=== PATIENT | male | born 1995 | race Caucasian/White ===

== ENCOUNTER 2016-12-07 17:40 | Emergency (ER) | payer MEDICAID ==
--- NOTE | 2016-12-07 18:13 | ER Document Report ---
ED Medical Screen (RME) - General Stated Complaint: COUGH Mode of Arrival: Ambulatory Information source: Patient Notes: Patient complains of cough for the past 2 months. Patient denies any fever. hx:none I have greeted and performed a rapid initial assessment of this patient. A comprehensive ED assessment and evaluation of the patient, analysis of test results and completion of the medical decision making process will be conducted by additional ED providers. TRAVEL OUTSIDE OF THE [place] IN LAST 30 DAYS: No - Related Data Allergies/Adverse Reactions: No Known Allergies Allergy (Verified 11/18/14 13:38) Past Medical History Past Surgical History: Reports: Hx Orthopedic Surgery - R knee - Immunizations Immunizations up to date: Yes Hx Diphtheria, Pertussis, Tetanus Vaccination: Yes Physical Exam - Vital signs Vitals: Temp Pulse Resp BP Pulse Ox 98.5 F 105 H 16 105/63 97 12/07/16 17:51 12/07/16 17:51 12/07/16 17:51 12/07/16 17:51 12/07/16 17:51 - Respiratory Respiratory status: No respiratory distress Breath sounds: Nonproductive cough Course - Vital Signs Vital signs: Temp Pulse Resp BP Pulse Ox 98.5 F 105 H 16 105/63 97 12/07/16 17:51 12/07/16 17:51 12/07/16 17:51 12/07/16 17:51 12/07/16 17:51
--- NOTE | 2016-12-07 19:10 | ER Document Report ---
ED General - General Chief Complaint: Cough Stated Complaint: COUGH Time seen by provider: 19:05 Mode of Arrival: Ambulatory Notes: This is a 21-year-old male that presents today with a cough nonproductive for the past 4 months. He states that he was seen by [facility]le October 2016 and diagnosed with pneumonia. He was put on Levaquin however he did not complete treatment regimen. He stated that he had one dose left before quitting due to nausea. He was also seen 2 weeks ago by the same facility and was told that he had an abnormal opacity; however he does not recall which lung field. Patient denies nausea vomiting fever chills shortness of breath. He does admit to chest pain when coughing. TRAVEL OUTSIDE OF THE [place] IN LAST 30 DAYS: No - Related Data Allergies/Adverse Reactions: No Known Allergies Allergy (Verified 11/18/14 13:38) Past Medical History - General Information source: Patient - Social History Smoking Status: Never Smoker - He does chew tobacco. One can a day for the past 5 years. Chew tobacco use (# tins/day): No Frequency of alcohol use: None Drug Abuse: None Family History: Reviewed & Not Pertinent Patient has suicidal ideation: No Patient has homicidal ideation: No Renal/ Medical History: Denies: Hx Peritoneal Dialysis Past Surgical History: Reports: Hx Orthopedic Surgery - R knee - Immunizations Immunizations up to date: Yes Hx Diphtheria, Pertussis, Tetanus Vaccination: Yes Review of Systems - Review of Systems Constitutional: denies: Chills, Fever EENT: No symptoms reported Cardiovascular: No symptoms reported Respiratory: See HPI Gastrointestinal: No symptoms reported Genitourinary: No symptoms reported Male Genitourinary: No symptoms reported Musculoskeletal: No symptoms reported Skin: No symptoms reported Hematologic/Lymphatic: No symptoms reported Neurological/Psychological: No symptoms reported Physical Exam - Vital signs Vitals: Temp Pulse Resp BP Pulse Ox 98.5 F 105 H 16 105/63 97 12/07/16 17:51 12/07/16 17:51 12/07/16 17:51 12/07/16 17:51 12/07/16 17:51 - General General appearance: Appears well In distress: None - HEENT Head: Normocephalic, Atraumatic Eyes: Normal Conjunctiva: Normal - Respiratory Respiratory status: No respiratory distress Breath sounds: Normal. No: Rales, Rhonchi, Stridor, Wheezing - Cardiovascular Rhythm: Regular Heart sounds: Normal auscultation - Abdominal Inspection: Normal Bowel sounds: Normal Tenderness: Nontender - Extremities General upper extremity: Normal inspection General lower extremity: Normal inspection - Neurological Cognition: Normal. No: Confused - Psychological Associated symptoms: Normal affect, Normal mood - Skin Skin Temperature: Warm Skin Moisture: Dry Skin Color: Normal Course - Re-evaluation Re-evalutation: 12/07/16 19:09 Radiograph image results was shared with the patient. He was given multiple opportunities to ask questions. Patient stated that he would follow-up with primary care physician. - Vital Signs Vital signs: Temp Pulse Resp BP Pulse Ox 98.1 F 85 16 105/65 98 12/07/16 19:43 12/07/16 19:43 12/07/16 19:43 12/07/16 19:43 12/07/16 19:43 Discharge - Discharge Clinical Impression: Cough Condition: Stable Disposition: HOME, SELF-CARE Additional Instructions: Return to the emergency department if symptoms worsen such as loss of consciousness, inability to breathe, fever, nausea, vomiting, etc. follow-up with primary care physician as soon as possible. Prescriptions: Albuterol Sulfate [Proair HFA Inhalation Aerosol 8.5 gm MDI] 2 puff IH Q4H PRN # 1 mdi PRN Reason: Referrals: MARS WEAVER MD, MD [Primary Care Provider] - Follow up as needed
[2016-12-07 19:44] VITALS: BP 105/65
== END 2016-12-07 19:25 | disposition home or self-care (01) ==
LOC: ER 17:40
DX: R05 Cough (principal); R11.0 Nausea
CPT/HCPCS: 71020; 99283

== ENCOUNTER 2017-01-27 22:06 | Emergency (ER) | payer MEDICAID ==
[2017-01-27 22:20] VITALS: BP 119/70
== END 2017-01-27 22:55 | disposition left against medical advice (07) ==
LOC: ER 22:06
DX: Z53.21 Procedure and treatment not carried out due to patient leaving prior to being seen by health care provider (principal)

== ENCOUNTER 2017-04-19 20:12 | Emergency (ER) | payer MEDICAID ==
[2017-04-19] MEDS ORDERED: DIPH/PERTUSS(ACELL)/TETANUS VAC/PF 0.5 ML SYR (>=10YO) IM ONE (20:43)
--- NOTE | 2017-04-19 21:17 | RADIOLOGY REPORT (SQ) ---
EXAM DESCRIPTION: HAND RIGHT 3 VIEWS COMPLETED DATE/TIME: 04/19/2017 9:03 pm REASON FOR STUDY: metal injury to hand COMPARISON: None. EXAM PARAMETERS: NUMBER OF VIEWS: Three views. TECHNIQUE: AP, lateral and oblique radiographic images acquired of the right hand. LIMITATIONS: None. FINDINGS: MINERALIZATION: Normal. BONES: No acute fracture or dislocation. No worrisome bone lesions. JOINTS: No effusions. SOFT TISSUES: No soft tissue swelling. No foreign body. OTHER: No other significant finding. IMPRESSION: NEGATIVE STUDY OF THE RIGHT HAND. NO RADIOGRAPHIC EVIDENCE OF ACUTE INJURY. TECHNICAL DOCUMENTATION: JOB ID: [id number] [employer]- All Rights Reserved
--- NOTE | 2017-04-19 22:04 | ER Document Report ---
HPI - HPI Onset: This evening Onset/Duration: Sudden Pain Level: 1 Context: 21 year-old male hit the dorsal aspect of his right hand while working on a car this evening. Tetanus shot 2 years ago. Associated Symptoms: None Exacerbated by: Denies Relieved by: Denies Similar symptoms previously: No Recently seen / treated by doctor: No - ROS ROS below otherwise negative: Yes Systems Reviewed and Negative: Yes All other systems reviewed and negative Past Medical History - General Information source: Patient - Social History Smoking Status: Never Smoker Chew tobacco use (# tins/day): No Frequency of alcohol use: None Drug Abuse: None Family History: Reviewed & Not Pertinent - Medical History Medical History: Negative Renal/ Medical History: Denies: Hx Peritoneal Dialysis Surgical Hx: Negative Past Surgical History: Reports: Hx Orthopedic Surgery - R knee - Immunizations Immunizations up to date: Yes Hx Diphtheria, Pertussis, Tetanus Vaccination: No Vertical Provider Document - CONSTITUTIONAL Agree With Documented VS: Yes Exam Limitations: No Limitations General Appearance: No Apparent Distress - INFECTION CONTROL TRAVEL OUTSIDE OF THE [place] IN LAST 30 DAYS: No - HEENT HEENT: Atraumatic - NECK Neck: Supple - RESPIRATORY O2 Sat by Pulse Oximetry: 97 - MUSCULOSKELETAL/EXTREMETIES Musculoskeletal/Extremeties: MAEW, FROM - NEURO Level of Consciousness: Awake, Alert Motor/Sensory: No Motor Deficit, No Sensory Deficit - DERM Integumentary: Laceration - Flap cut over dorsal fourth . rt MCP joint. length of edge 1,5 cm Course - Vital Signs Vital signs: Temp Pulse Resp BP Pulse Ox 98.5 F 82 105/58 L 97 04/19/17 20:37 04/19/17 20:37 04/19/17 20:37 04/19/17 20:37 Procedures - Laceration/Wound Repair Right Hand Time completed: 23:03 Wound length (cm): 1.5 Wound's Depth, Shape: Flap Laceration pre-procedure: Sterile drapes applied, Other - ultradex scrub Anesthetic type: 1% Lidocaine Volume Anesthetic (mLs): 3 Wound explored: Clean Irrigated w/ Saline (mLs): 60 Wound Repaired With: Sutures Suture Size/Type: 4:0, Prolene Number of Sutures: 2 Post-procedure NV exam normal: Yes Complications: No Discharge - Discharge Clinical Impression: 4th dorsal rt MCP joint flap cut repair Condition: Good Disposition: HOME, SELF-CARE Instructions: Hand Laceration ([facility]), Laceration Care ([facility]) Additional Instructions: keep clean and dry bacitracin to er any concerns or signs of infection sutures out in 10 days Referrals: MARS WEAVER MD [Primary Care Provider] - Follow up as needed
[2017-04-19] MEDS ORDERED: LIDOCAINE 1% INJ-PF (10 MG/ML) 30 ML SDV INJ ONE (22:08)
[2017-04-19 23:18] VITALS: BP 115/68
== END 2017-04-19 23:18 | disposition home or self-care (01) ==
LOC: ER 20:12
PROC: 0HQFXZZ Repair Right Hand Skin, External Approach (ICD-10-PCS; principal; 2017-04-19)
DX: S61.411A Laceration without foreign body of right hand, initial encounter (principal); W22.09XA Striking against other stationary object, initial encounter; Z23 Encounter for immunization
CPT/HCPCS: 99283; 90471; 73130; 90715; 12001; J3490

== ENCOUNTER 2017-05-26 13:32 | Emergency (ER) | payer MEDICAID ==
[2017-05-26 13:38] VITALS: BP 111/64
[2017-05-26] MEDS ORDERED: ONDANSETRON 4 MG TAB.RAPDIS PO ONE (14:27)
--- NOTE | 2017-05-26 14:29 | ER Document Report ---
ED Medical Screen (RME) - General Chief Complaint: Abdominal Pain Stated Complaint: THROWING UP, SWEATING, DIARREHA Time Seen by Provider: 05/26/17 14:27 Notes: Patient has had vomiting and diarrhea since this morning. He says he is vomited 3 or 4 times. As he sat on the toilet for about an hour with the diarrhea. No blood seen in the diarrhea or vomitus. No fevers. Denies abdominal pain. TRAVEL OUTSIDE OF THE [place] IN LAST 30 DAYS: No - Related Data Allergies/Adverse Reactions: No Known Allergies Allergy (Verified 05/26/17 13:35) Past Medical History - Social History Chew tobacco use (# tins/day): No Frequency of alcohol use: None Drug Abuse: None Renal/ Medical History: Denies: Hx Peritoneal Dialysis Surgical Hx: Negative Past Surgical History: Reports: Hx Orthopedic Surgery - R knee - Immunizations Immunizations up to date: Yes Hx Diphtheria, Pertussis, Tetanus Vaccination: No Physical Exam - Vital signs Vitals: Temp Pulse Resp BP Pulse Ox 99.2 F 113 H 14 111/64 97 05/26/17 13:35 05/26/17 13:35 05/26/17 13:35 05/26/17 13:35 05/26/17 13:35 Course - Vital Signs Vital signs: Temp Pulse Resp BP Pulse Ox 99.2 F 113 H 14 111/64 97 05/26/17 13:35 05/26/17 13:35 05/26/17 13:35 05/26/17 13:35 05/26/17 13:35
[2017-05-26 15:16] LABS: APPEARANCE,URINE CLEAR; BILIRUBIN,URINE MODERATE (NEGATIVE); GLUCOSE, URINE NEGATIVE (NEGATIVE); KETONES,URINE 100 mg/dL (NEGATIVE); LEUKOCYTE ESTERASE,URINE NEGATIVE (NEGATIVE); NITRITE,URINE NEGATIVE (NEGATIVE); PROTEIN,URINE 30 mg/dL (NEGATIVE)
[2017-05-26 15:17] LABS: ABSOLUTE LYMPHOCYTES (AUTO) 0.5 10^3/uL (0.5-4.7); ABSOLUTE MONOCYTES (AUTO) 0.2 10^3/uL (0.1-1.4); BASOPHILS % (AUTO) 0.2 % (0-2); EOSINOPHILS % (AUTO) 0.4 % (0-6); HEMATOCRIT 47.8 % (37.9-51.0); HGB HCT DIFFERENCE 0.2; LYMPHOCYTES % (AUTO) 7.2 % (13-45); MEAN CORPUSCULAR HEMOGLOBIN 28.2 pg (27.0-33.4); MEAN CORPUSCULAR HGB CONC 33.4 g/dL (32.0-36.0); MEAN CORPUSCULAR VOLUME 84 fl (80-97); MONOCYTES % (AUTO) 3.6 % (3-13); RED BLOOD COUNT 5.67 10^6/uL (4.35-5.55); RED CELL DISTRIBUTION WIDTH 12.6 % (11.5-14.0); SEGMENTED NEUTROPHILS % (AUTO) 88.6 % (42-78); WHITE BLOOD COUNT 6.8 10^3/uL (4.0-10.5)
[2017-05-26 15:17] LABS: URINE SPECIFIC GRAVITY 1.032
[2017-05-26 15:35] LABS: ALANINE AMINOTRANSFERASE 26 U/L (21-72); ALBUMIN 4.7 g/dL (3.5-5.0); ALKALINE PHOSPHATASE 74 U/L (38-126); ANION GAP 14 (5-19); ASPARTATE AMINO TRANSFERASE 21 U/L (17-59); BILIRUBIN,DIRECT 0.4 mg/dL (0.0-0.4); BILIRUBIN,TOTAL 2.8 mg/dL (0.2-1.3); BLOOD UREA NITROGEN 26 mg/dL (7-20); CALCIUM 9.4 mg/dL (8.4-10.2); CARBON DIOXIDE 25 mmol/L (22-30); CHLORIDE 101 mmol/L (98-107); CREATININE RESULT 1.01 mg/dL (0.52-1.25); GLUCOSE 109 mg/dL (75-110); LIPASE 40.1 U/L (23-300); POTASSIUM 3.8 mmol/L (3.6-5.0); SODIUM 140.4 mmol/L (137-145); TOTAL PROTEIN 7.7 g/dL (6.3-8.2)
== END 2017-05-26 15:50 | disposition left against medical advice (07) ==
LOC: ER 13:32
DX: Z53.9 Procedure and treatment not carried out, unspecified reason (principal); R10.9 Unspecified abdominal pain; R11.10 Vomiting, unspecified
CPT/HCPCS: 99281; 36415; 83690; 85025; 80053; 81001; S0119

== ENCOUNTER 2017-05-26 22:39 | Emergency (ER) | payer MEDICAID ==
[2017-05-26 23:21] LABS: ABSOLUTE LYMPHOCYTES (AUTO) 0.9 10^3/uL (0.5-4.7); ABSOLUTE MONOCYTES (AUTO) 0.4 10^3/uL (0.1-1.4); ABSOLUTE NEUT (AUTO) 4.4 10^3/uL (1.7-8.2); BASOPHILS % (AUTO) 0.7 % (0-2); EOSINOPHILS % (AUTO) 0.7 % (0-6); HEMATOCRIT 44.6 % (37.9-51.0); HGB HCT DIFFERENCE 0.4; LYMPHOCYTES % (AUTO) 15.5 % (13-45); MEAN CORPUSCULAR HEMOGLOBIN 28.4 pg (27.0-33.4); MEAN CORPUSCULAR HGB CONC 33.6 g/dL (32.0-36.0); MEAN CORPUSCULAR VOLUME 84 fl (80-97); MONOCYTES % (AUTO) 7.4 % (3-13); RED BLOOD COUNT 5.29 10^6/uL (4.35-5.55); RED CELL DISTRIBUTION WIDTH 12.6 % (11.5-14.0); SEGMENTED NEUTROPHILS % (AUTO) 75.7 % (42-78); WHITE BLOOD COUNT 5.8 10^3/uL (4.0-10.5)
[2017-05-26 23:23] LABS: APPEARANCE,URINE CLEAR; BILIRUBIN,URINE NEGATIVE (NEGATIVE); GLUCOSE, URINE NEGATIVE (NEGATIVE); KETONES,URINE TRACE mg/dL (NEGATIVE); LEUKOCYTE ESTERASE,URINE NEGATIVE (NEGATIVE); NITRITE,URINE NEGATIVE (NEGATIVE); PROTEIN,URINE NEGATIVE (NEGATIVE); URINE SPECIFIC GRAVITY 1.018
[2017-05-26 23:37] LABS: ALANINE AMINOTRANSFERASE 32 U/L (21-72); ALBUMIN 4.5 g/dL (3.5-5.0); ALKALINE PHOSPHATASE 59 U/L (38-126); ANION GAP 13 (5-19); ASPARTATE AMINO TRANSFERASE 19 U/L (17-59); BILIRUBIN,DIRECT 0.3 mg/dL (0.0-0.4); BILIRUBIN,TOTAL 3.1 mg/dL (0.2-1.3); BLOOD UREA NITROGEN 22 mg/dL (7-20); CALCIUM 9.2 mg/dL (8.4-10.2); CARBON DIOXIDE 25 mmol/L (22-30); CHLORIDE 98 mmol/L (98-107); CREATININE RESULT 1.11 mg/dL (0.52-1.25); GLUCOSE 99 mg/dL (75-110); LIPASE 42.5 U/L (23-300); POTASSIUM 3.8 mmol/L (3.6-5.0); SODIUM 135.9 mmol/L (137-145); TOTAL PROTEIN 7.5 g/dL (6.3-8.2)
[2017-05-27] MEDS ORDERED: NORMAL SALINE 1000 ML 1,000 ML IV ONE (02:39)
--- NOTE | 2017-05-27 02:45 | ER Document Report ---
ED GI/ - General Chief Complaint: Vomiting Stated Complaint: VOMITING Time Seen by Provider: 05/27/17 01:38 Mode of Arrival: Ambulatory Information source: Patient Notes: -year-old male presents to ED for nausea vomiting diarrhea yesterday. Just not had any vomiting today. States he does have some leg pain and dizziness and loopy feeling today. He states that he vomited multiple times yesterday. TRAVEL OUTSIDE OF THE [place] IN LAST 30 DAYS: No - HPI Patient complains to provider of: Diarrhea, Vomiting, Other - Leg cramps dizziness and feeling "loopy" Onset: Yesterday Timing/Duration: Better Quality of pain: Cramping Severity at maximum: Moderate Severity in ED: Moderate Pain Level: 3 Location: Other - Leg cramps and dizzy Associated symptoms: Diarrhea, Dizzy, Nausea, Vomiting, Other - Cramps Exacerbated by: Movement, Walking Relieved by: Denies Similar symptoms previously: Yes Recently seen / treated by doctor: No - Related Data Allergies/Adverse Reactions: No Known Allergies Allergy (Verified 05/26/17 13:35) Past Medical History - General Information source: Patient - Social History Smoking Status: Never Smoker Cigarette use (# per day): No Chew tobacco use (# tins/day): Yes Smoking Education Provided: Yes - 1 minute Frequency of alcohol use: None Drug Abuse: None Occupation: [employer] Lives with: Family Family History: CAD, COPD, DM, Hyperlipidemia, Hypertension, Malignancy Patient has suicidal ideation: No Patient has homicidal ideation: No - Past Medical History Cardiac Medical History: Reports: None Pulmonary Medical History: Reports: None EENT Medical History: Reports: Eyes - Cataract removed at age 9 Neurological Medical History: Reports: None Endocrine Medical History: Reports: None Renal/ Medical History: Reports: None Malignancy Medical History: Reports None GI Medical History: Reports: None Musculoskeltal Medical History: Reports Hx Musculoskeletal Trauma Skin Medical History: Reports None Psychiatric Medical History: Reports: None Traumatic Medical History: Reports: None Infectious Medical History: Reports: None Past Surgical History: Reports: Hx Orthopedic Surgery - R knee, Other - Cataract removed at age 9 - Immunizations Immunizations up to date: Yes Hx Diphtheria, Pertussis, Tetanus Vaccination: No Review of Systems - Review of Systems Constitutional: No symptoms reported EENT: No symptoms reported Cardiovascular: Dizziness Respiratory: No symptoms reported Gastrointestinal: No symptoms reported Genitourinary: No symptoms reported Male Genitourinary: No symptoms reported Musculoskeletal: Other - Leg cramps Skin: No symptoms reported Hematologic/Lymphatic: No symptoms reported Neurological/Psychological: No symptoms reported -: Yes All other systems reviewed and negative Physical Exam - Vital signs Vitals: Temp Pulse Resp BP Pulse Ox 99.8 F 113 H 20 113/70 96 05/26/17 22:40 05/26/17 22:40 05/26/17 22:40 05/26/17 22:40 05/26/17 22:40 Interpretation: Hypotensive - Pressure 87/62, Other - Pulse 76, 97% O2 sat. No : Febrile - 29.4 - General General appearance: Appears well, Alert - HEENT Head: Normocephalic, Atraumatic Eyes: Normal Pupils: PERRL - Respiratory Respiratory status: No respiratory distress Chest status: Nontender Breath sounds: Normal Chest palpation: Normal - Cardiovascular Rhythm: Regular Heart sounds: Normal auscultation Murmur: No - Abdominal Inspection: Normal Distension: No distension Bowel sounds: Normal Tenderness: Nontender Organomegaly: No organomegaly - Back Back: Normal, Nontender - Extremities General upper extremity: Normal inspection, Nontender, Normal color, Normal ROM , Normal temperature General lower extremity: Normal inspection, Nontender, Normal color, Normal ROM , Normal temperature, Normal weight bearing. No: Tj's sign - Neurological Neuro grossly intact: Yes Cognition: Normal Orientation: AAOx4 David Coma Scale Eye Opening: Spontaneous David Coma Scale Verbal: Oriented [place] Coma Scale Motor: Obeys Commands David Coma Scale Total: 15 Speech: Normal Motor strength normal: LUE, RUE, LLE, RLE Sensory: Normal - Psychological Associated symptoms: Normal affect, Normal mood - Skin Skin Temperature: Warm Skin Moisture: Dry Skin Color: Normal Course - Re-evaluation Re-evalutation: 05/27/17 07:58 Patient labs with the patient blood pressure was low gave him a liter of fluids he stated that he felt much better food and was ready to go home. Patient was discharged home. - Vital Signs Vital signs: Temp Pulse Resp BP Pulse Ox 99.8 F 88 18 105/62 96 05/26/17 22:40 05/27/17 04:24 05/27/17 04:24 05/27/17 04:24 05/27/17 04:24 - Laboratory Result Diagrams: 05/26/17 23:00 05/26/17 23:00 Laboratory results interpreted by me: 05/26/17 05/26/17 05/26/17 23:00 23:00 23:00 Plt Count 115 L Sodium 135.9 L BUN 22 H Total Bilirubin 3.1 H Urine Ketones TRACE H Urine Blood SMALL H Urine Urobilinogen 4.0 H Discharge - Discharge Clinical Impression: Nausea, vomiting, and diarrhea, Dizziness Condition: Stable Disposition: HOME, SELF-CARE Additional Instructions: VOMITING: Vomiting (or nausea without vomiting) can be caused by many other different problems. It can mean that something's wrong with the stomach, such as ulcers or inflammation or the intestinal tract, such as appendicitis. But it can also be a symptom of a problem that has nothing to do with the stomach or intestines. Vomiting is common with severe headaches, earaches, tonsillitis, and kidney infections, etc. We see it with pneumonia or heart attacks. Drugs can cause nausea and vomiting. Many abdominal problems cause vomiting; for example, gallstones, kidney stones, pancreatitis, and intestinal obstruction ( blocked bowels). In most cases, curing the vomiting depends on fixing the problem that caused it. For temporary relief, we may use an anti-nausea medicine. For home use, we can prescribe suppositories, chewable pills, pills that dissolve in the mouth, or liquid anti-nausea drugs. If the vomiting seems to be caused by a problem in the stomach, acid-suppressing drugs may be prescribed as well. It's important to avoid dehydration. Sip small amounts of clear liquids ( soft drinks, tea, broth, etc) . Try to take fluids frequently even if you are vomiting to prevent dehydration. Take increasing amounts of fluid and when liquids are being consumed successfully, advance to small amounts of bland food (toast, soups, mashed potatoes, etc.) until you are able to resume a regular diet. Avoid aspirin, tobacco, and alcohol. If the vomiting worsens, if the problem that's making you vomit worsens, or if there's evidence of bleeding in the stomach (such as black, tarry stool, or bloody or black vomit), you should return immediately. Also, return if abdominal pain worsens or becomes localized to one area or you develop high fever. Call your doctor if you aren't improved in 24 hours. DIARRHEA, NON-SPECIFIC: Diarrhea means frequent, watery stools. There are many causes. Any problem that keeps the intestinal tract from absorbing water from the stool can lead to diarrhea. A sudden new diarrhea problem is usually caused by a virus, food sensitivity, toxic bacteria, or drugs. In this case, we expect the problem to go away soon. Testing is done only if you seem seriously ill from the diarrhea. If you have chronic diarrhea, or diarrhea that keeps coming back, we need to find out why. Chronic diarrhea can be due to inflammation of the bowels such as Crohn's disease or ulcerative colitis, food sensitivity such as intolerance to lactose or wheat protein, irritable bowel syndrome, and other problems. If your diarrhea is a significant problem but it's not clear why you have it, we' ll refer you to a specialist for further testing. During an episode of diarrhea, drink small amounts (two to six ounces) of clear liquids (soft drinks, sport drinks, herb teas, broth, etc). Take fluids frequently to prevent dehydration. It's usually not a problem to take mild anti- diarrhea medication such as Kaopectate or Pepto-Bismol. As the diarrhea eases, advance to small amounts of bland food (mashed potato, toast) for 24 hours. Call the physician if blood appears in your vomit or stool, if vomiting lasts longer than 24 hours, if the abdominal pain worsens or becomes localized to one area, if you develop high fever, or if you become lightheaded and weak. VIRAL SYNDROME: The physician has diagnosed a viral infection. Viruses not only cause "colds," but can cause many different symptoms including generalized aching, fever, headache, cough, diarrhea, nausea, vomiting, and fatigue. The treatment, for the most part, is simply relief of symptoms. This means that antibiotics are usually not given. Rest, fluids, pain medications and, occasionally, medication for the specific symptoms that are most bothersome will be prescribed. Use good handwashing to avoid passing the virus to others. Shared toys should be cleaned with disinfectant. Clean the toilets, sinks, and counter surfaces in bathrooms. Launder clothing in hot water. Contact the physician if you develop any new or unusual symptoms such as severe headache, stiff neck, high fever, chest pain, productive cough, or shortness of breath. You should be rechecked if you don't see marked improvement within seven to 10 days. INTRAVENOUS (I V) FLUIDS: As part of your care today, you received intravenous (IV) fluids. IV fluids are administered to patients who are dehydrated or to those who have certain chemical (electrolyte) abnormalities that need correcting. ANTINAUSEA MEDICATION: You have been given a medication to suppress nausea and vomiting. This type of medication can be given as a shot, pill, or suppository. It will usually last for many hours. Pills and shots usually last six to eight hours. For the typical illness, only one or two doses of the medication may be necessary. Mild lightheadedness may occur. This type of medicine can cause drowsiness. Do not drive or operate dangerous machinery while under its influence. Do not mix with alcohol. See your doctor at once if you have muscle spasms or tightness, or uncontrollable motions (particularly of the neck, mouth, or jaw). Persistent vomiting or severe lightheadedness should also be evaluated by the physician. FOLLOW-UP CARE: If you have been referred to a physician for follow-up care, call the physician s office for an appointment as you were instructed or within the next two days. If you experience worsening or a significant change in your symptoms, notify the physician immediately or return to the Emergency Department at any time for re-evaluation. Prescriptions: Ondansetron [Zofran Odt 4 mg Tablet] 1 tab PO Q6H #15 [email or web address] Referrals: MARS WEAVER MD [Primary Care Provider] - Follow up as needed
[2017-05-27 04:34] VITALS: BP 105/62
== END 2017-05-27 04:34 | disposition home or self-care (01) ==
LOC: ER 22:39
DX: R11.2 Nausea with vomiting, unspecified (principal); R19.7 Diarrhea, unspecified; R42 Dizziness and giddiness; M79.606 Pain in leg, unspecified
CPT/HCPCS: 99283; 96360; 36415; 83690; 85025; 80053; 81001; J7030

== ENCOUNTER 2017-07-02 14:00 | Emergency (ER) | payer OTHER, MEDICAID ==
[2017-07-02] MEDS ORDERED: ACETAMINOPHEN 325 MG TABLET PO ONE (14:24)
--- NOTE | 2017-07-02 15:11 | RADIOLOGY REPORT (SQ) ---
EXAM DESCRIPTION: CT HEAD WITHOUT COMPLETED DATE/TIME: 07/02/2017 2:42 pm REASON FOR STUDY: chelsea hernandez fell on his head, +LOC COMPARISON: None. TECHNIQUE: Axial images acquired through the brain without intravenous contrast. Images reviewed wi th bone, brain and subdural windows. Images stored on PACS. All CT scanners at this facility use dose modulation, iterative reconstruction, and/or weight based d osing when appropriate to reduce radiation dose to as low as reasonably achievable (ALARA). [facility]: Dose Right [facility]: CareDose [facility]: Dose Right [facility]: Teradose 4D [facility]: [employer] RADIATION DOSE: Up-to-date CT equipment and radiation dose reduction techniques were employed. CTDIv ol: 64.6 mGy. DLP: 1163 mGy-cm. mGy. LIMITATIONS: None. FINDINGS: VENTRICLES: Normal size and contour. CEREBRUM: No masses. No hemorrhage. No midline shift. Normal lino/white matter differentiation. N o evidence for acute infarction. CEREBELLUM: No masses. No hemorrhage. No alteration of density. No evidence for acute infarction. EXTRAAXIAL SPACES: No fluid collections. No masses. ORBITS AND GLOBE: No intra- or extraconal masses. Normal contour of globe without masses. CALVARIUM: No fracture. PARANASAL SINUSES: No fluid or mucosal thickening. SOFT TISSUES: No mass or hematoma. OTHER: No other significant finding. IMPRESSION: NORMAL BRAIN CT WITHOUT CONTRAST. TECHNICAL DOCUMENTATION: JOB ID: [id number] Quality ID # [id number]: Final reports with documentation of one or more dose reduction techniques (e.g., Au tomated exposure control, adjustment of the mA and/or kV according to patient size, use of iterative reconstruction technique) 2010 [employer]- All Rights Reserved
--- NOTE | 2017-07-02 15:27 | RADIOLOGY REPORT (SQ) ---
EXAM DESCRIPTION: CT CERVICAL SPINE WITHOUT COMPLETED DATE/TIME: 07/02/2017 2:42 pm REASON FOR STUDY: chelsea hernandez fell on his head, +LOC COMPARISON: None. TECHNIQUE: Axial images acquired through the cervical spine without intravenous contrast. Images re viewed with lung, soft tissue and bone windows. Reconstructed coronal and sagittal MPR images review ed. Images stored on PACS. All CT scanners at this facility use dose modulation, iterative reconstruction, and/or weight based d osing when appropriate to reduce radiation dose to as low as reasonably achievable (ALARA). [facility]: Dose Right [facility]: CareDose [facility]: Dose Right [facility]: Teradose 4D [facility]: [employer] RADIATION DOSE: Up-to-date CT equipment and radiation dose reduction techniques were employed. CTDIv ol: 12.4 mGy. DLP: 285 mGy-cm. mGy. LIMITATIONS: None. FINDINGS: ALIGNMENT: Anatomic. MINERALIZATION: Normal. VERTEBRAL BODIES: No fractures or dislocation. DISCS: No significant disc disease. FACETS, LATERAL MASSES, POSTERIOR ELEMENTS: No fractures. No dislocation. No acute findings. HARDWARE: None in the spine. VISUALIZED RIBS: No fractures. LUNG APICES AND SOFT TISSUES: No significant or acute findings. OTHER: No other significant finding. IMPRESSION: NO ACUTE OR SIGNIFICANT FINDINGS IN THE CERVICAL SPINE. TECHNICAL DOCUMENTATION: JOB ID: [id number] Quality ID # [id number]: Final reports with documentation of one or more dose reduction techniques (e.g., Au tomated exposure control, adjustment of the mA and/or kV according to patient size, use of iterative reconstruction technique) 2010 [employer]- All Rights Reserved
--- NOTE | 2017-07-02 15:43 | ER Document Report ---
ED Neck/Back Problem - General Chief Complaint: Neck Injury Stated Complaint: NECK PAIN/INJURY Time Seen by Provider: 07/02/17 14:12 TRAVEL OUTSIDE OF THE [place] IN LAST 30 DAYS: No - HPI Patient complains to provider of: Injury - injury on , a trailor gate fell on his head -LOC, neck pain that has not gotten better Onset: Other - Where: Work Onset: Sudden Quality of pain: Achy Recent injury: Yes - Related Data Allergies/Adverse Reactions: No Known Allergies Allergy (Verified 07/02/17 14:22) Past Medical History - Social History Smoking Status: Current Every Day Smoker Chew tobacco use (# tins/day): Yes Frequency of alcohol use: Rare Drug Abuse: None Family History: CAD, COPD, DM, Hyperlipidemia, Hypertension, Malignancy Renal/ Medical History: Denies: Hx Peritoneal Dialysis Musculoskeltal Medical History: Reports Hx Musculoskeletal Trauma Past Surgical History: Reports: Hx Orthopedic Surgery - R knee, Other - Cataract removed at age 9 - Immunizations Immunizations up to date: Yes Hx Diphtheria, Pertussis, Tetanus Vaccination: No Review of Systems - Review of Systems Constitutional: No symptoms reported Musculoskeletal: See HPI Neurological/Psychological: No symptoms reported Physical Exam - Vital signs Vitals: Temp Pulse Resp BP Pulse Ox 98.6 F 70 16 123/72 98 07/02/17 14:03 07/02/17 14:03 07/02/17 14:03 07/02/17 14:03 07/02/17 14:03 - Notes Notes: PHYSICAL EXAMINATION: GENERAL: Well-appearing, well-nourished and in no acute distress. C collar in place. GCS 15 HEAD: Atraumatic, normocephalic. EYES: Pupils equal round and reactive to light, extraocular movements intact, sclera anicteric, conjunctiva are normal. ENT: Nares patent, oropharynx clear without exudates. Moist mucous membranes. No hemanotympanum . No blood in nares. No dental fracture NECK: Normal range of motion, supple without lymphadenopathy. Trachea midline LUNGS: Breath sounds clear to auscultation bilaterally and equal. No wheezes rales or rhonchi. HEART: Regular rate and rhythm without murmurs. Pulses intact all throughout. Musculoskeletal: Tenderness along the right trapezius. Normal range of motion, no pitting or edema. No cyanosis. Hip non tender, stable. NEUROLOGICAL: Cranial nerves grossly intact. Normal speech, normal gait. Normal sensory, motor, and reflex exams. PSYCH: Normal mood, normal affect. SKIN: Warm, No active bleeding [place] fast exam notes no obvious free fluid but this is a nondiagnostic evaluation Course - Re-evaluation Re-evalutation: 07/02/17 17:13 Presentation of head trauma in an otherwise well-appearing patient. No focal neurologic deficits on exam, no evidence of basilar skull fracture on exam without evidence of hemotympanum, raccoon eyes, or periauricular hematoma. No papilledema. Patient is not on anticoagulation. GCS is 15. No loss of consciousness. No episodes of vomiting. - Vital Signs Vital signs: Temp Pulse Resp BP Pulse Ox 98.3 F 77 18 113/65 99 07/02/17 15:51 07/02/17 15:51 07/02/17 15:51 07/02/17 15:51 07/02/17 15:51 - Diagnostic Test Radiology reviewed: Image reviewed, Reports reviewed Discharge - Discharge Clinical Impression: Cervical strain Qualifiers: Encounter type: initial encounter Qualified Code(s): S16.1XXA - Strain of muscle, fascia and tendon at neck level, initial encounter Condition: Good Disposition: HOME, SELF-CARE Additional Instructions: MOTOR VEHICLE ACCIDENT: You may develop some soreness and stiffness over the next two days. Mild neck and back strain is common in auto accidents, and may not be painful until the muscle becomes inflamed. But if nothing is painful now, there is no fracture , and x-rays are not needed. If you develop pain over the next couple of days, treat each tender area. Apply cold packs directly to the painful spot. Rest. Antiinflammatory pain medication, such as ibuprofen, can decrease soreness and inflammation. Most of the time, these late-developing pains go away within a few days. Most patients are back at work or school within a week. The area might be little irritable for two or three weeks. You should call the doctor, or go to the hospital, if you develop severe neck, chest, or abdominal pain, repeated vomiting, severe lightheadedness or weakness, trouble breathing, numbness or weakness in any extremity, problems with your bladder or bowel, or pain radiating down an arm or leg. HEAD INJURY PRECAUTIONS: At this point, there is no evidence that your head injury is serious. Observation is necessary, however. Take only clear liquids for the first few hours, unless told otherwise by the doctor. If no pain medication was prescribed, you may take acetaminophen according to the directions on the bottle. Do not take any medication that may alter your level of alertness (unless you've discussed it with the doctor first) . Limit activity for the first 24 hours. Bed rest is best. During the first 24 hours, check to see approximately every two to three hours that the patient is easily arousable, responds normally, and can perform common tasks such as walking without difficulty. Contact your doctor or go to the hospital if any of the following things occur: Persistent vomiting, difficulty in arousing the patient, worsening or continued headache, or failure to improve as expected. Head injuries can cause symptoms that persist for a few days or even a few weeks. NECK INJURY (CERVICAL STRAIN): You have a neck strain. This is an injury to the muscles and ligaments in the neck. There is no evidence of a fracture of the neck bones. Also, no injury to the spinal cord or nerve roots was detected. Usually, stiffness and pain INCREASE for the first 24-48 hours after the injury. The pain will gradually resolve and the neck will become more mobile. Most patients are back at work or school within a few days. Typically, complete healing takes about two or three weeks. The usual initial treatment is rest and cold packs. A neck collar may be placed to keep the muscles of the neck at rest. Antiinflammatory and muscle relaxing medication are often used to reduce the spasm and irritation. You should call the doctor, or go to the hospital, if you develop numbness or weakness in any extremity, problems with your bladder or bowel, or pain radiating down the arms. MUSCLE STRAIN: You have strained a muscle -- torn the fibers within the muscle. This often occurs with strenuous exertion, or during an injury that suddenly stretches the muscle. The seriousness of a strain varies. Some strains heal within days, others cause problems for months. X-rays cannot show a muscle strain. X-rays are taken only if symptoms suggest that a fracture could be present. The usual treatment of a muscle strain is rest and ice packs. Sometimes, a sling, splint, or crutches may be necessary to rest the muscle. The muscle can be used again once pain subsides. Severe strains require a special exercise and stretching program to prevent permanent stiffness and disability. Your doctor will advise you if this will be necessary. Call the doctor immediately if pain or swelling becomes severe, or if numbness or discoloration develop. USE OF TYLENOL (ACETAMINOPHEN): Acetaminophen may be taken for pain relief or fever control. It's much safer than aspirin, offering a wider range of "safe" dosages. It is safe during . Some brand names are Tylenol, Panadol, Datril, Anacin 3, Tempra, and Liquiprin. Acetaminophen can be repeated every four hours. The following are maximum recommended dosages: WEIGHT Dose Drops Elixir Chewable( 80mg) (LBS.) drprs=droppers tsp=teaspoon 6 40 mg 0.4 ml (1/2) 6-11 80 mg 0.8 ml (full) tsp 1 tab 12-16 120 mg 1 1/2 drprs 3/4 tsp 1 1/2 tabs 17-23 160 mg 2 drprs 1 tsp 2 tabs 24-30 240 mg 3 drprs 1 1/2 tsp 3 tabs 30-35 320 mg 2 tsp 4 tabs 36-41 360 mg 2 1/4 tsp 4 1/2 tabs 42-47 400 mg 2 1/2 tsp 5 tabs 48-53 480 mg 3 tsp 6 tabs 54-59 520 mg 3 1/4 tsp 6 1/2 tabs 60-64 560 mg 3 1/2 tsp 7 tabs 65-70 600 mg 3 3/4 tsp 7 1/2 tabs 71-76 640 mg 4 tsp 8 tabs 77-82 720 mg 4 1/2 tsp 9 tabs 83-88 800 mg 5 tsp 10 tabs >89 pounds or adults 650 mg to 900 mg Acetaminophen can be repeated every four hours. Maximum dose not to exceed 4000 mg a day. These maximum recommended dosages are slightly higher than the dosages written on the product container, but these dosages are very safe and below the toxic dosage for acetaminophen. ICE PACKS: Apply ice packs frequently against the painful area. Many different schedules are recommended, such as "20 minutes on, 20 minutes off" or "one hour ice, two hours rest." If you need to work, you may need to go longer between ice treatments. You should plan to have the area ice packed AT LEAST one fourth of the time. The ice should be applied over the wrap, tape, or splint, or over a layer of cloth -- not directly against the skin. Some ice bags have a built-in cloth and can be put directly on the skin. WARM PACKS: After approximately two days, apply gentle heat (such as a heating pad or hot water bottle) for about 20 to 30 minutes about every two hours -- at least four times daily. Warmth and elevation will help you make a more rapid recovery , and will ease the pain considerably. Do not use HOT heat, and never apply heat for longer than 30 minutes. The continuous heat can invisibly damage skin and muscles -- even when no burn is seen on the surface. Damaged muscles can make you MORE sore. MUSCLE RELAXERS: Muscle relaxing medications are usually prescribed for acute muscle spasm or injury to the neck and back. They are often combined with antiinflammatory pain medication for increased relief. You may stop the muscle relaxer when the pain and stiffness have improved. Start the medication again if spasms recur. Muscle relaxers may cause drowsiness, especially with the first dose. Do not operate machinery or drive while under the effects of the medication. Most muscle relaxers last up to 24 hours. Do not combine the medication with alcohol. FOLLOW-UP CARE: If you have been referred to a physician for follow-up care, call the physician s office for an appointment as you were instructed or within the next two days. If you experience worsening or a significant change in your symptoms, notify the physician immediately or return to the Emergency Department at any time for re-evaluation. Prescriptions: Cyclobenzaprine HCl [Flexeril 10 mg Tablet] 10 mg PO TIDP PRN #15 tab PRN Reason: Ibuprofen [Motrin 800 mg Tablet] 800 mg PO Q8H PRN #30 tab PRN Reason: Referrals: MARS WEAVER MD [Primary Care Provider] - Follow up as needed
[2017-07-02 15:52] VITALS: BP 113/65
== END 2017-07-02 15:52 | disposition home or self-care (01) ==
LOC: ER 14:00
DX: S16.1XXA Strain of muscle, fascia and tendon at neck level, initial encounter (principal); W20.8XXA Other cause of strike by thrown, projected or falling object, initial encounter; Y99.0 Civilian activity done for income or pay; F17.210 Nicotine dependence, cigarettes, uncomplicated
CPT/HCPCS: 70450; 72125; 99283

== ENCOUNTER 2018-10-04 17:47 | Emergency (ER) | payer MEDICAID, OTHER ==
[2018-10-04] MEDS ORDERED: NORMAL SALINE 1000 ML 1,000 ML IV ONE (18:29)
--- NOTE | 2018-10-04 18:31 | ER Document Report ---
ED Medical Screen (RME) - General Chief Complaint: Vomiting Stated Complaint: HAND INJURY, VOMITING Time Seen by Provider: 10/04/18 18:22 Notes: 23 years old male punched a wall of the right hand, 3 days ago presents with pain swelling and discoloration as well as headache and feeling dizzy and lightheadedness. 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 Examination right hand middle knuckle shows swelling and dried blood. And tender all around it. Lungs clear cardiovascular system normal TRAVEL OUTSIDE OF THE [place] IN LAST 30 DAYS: No - Related Data Allergies/Adverse Reactions: No Known Allergies Allergy (Verified 10/04/18 17:50) Past Medical History Renal/ Medical History: Denies: Hx Peritoneal Dialysis Musculoskeltal Medical History: Reports Hx Musculoskeletal Trauma Past Surgical History: Reports: Hx Orthopedic Surgery - R knee, Other - Cataract removed at age 9 - Immunizations Immunizations up to date: Yes Hx Diphtheria, Pertussis, Tetanus Vaccination: No Physical Exam - Vital signs Vitals: Temp Pulse Resp BP Pulse Ox 98.8 F 78 14 122/64 98 10/04/18 17:52 10/04/18 17:52 10/04/18 17:52 10/04/18 17:52 10/04/18 17:52 Course - Vital Signs Vital signs: Temp Pulse Resp BP Pulse Ox 98.8 F 78 14 122/64 98 10/04/18 17:52 10/04/18 17:52 10/04/18 17:52 10/04/18 17:52 10/04/18 17:52 Doctor's Discharge - Discharge Referrals: MARS WEAVER MD [Primary Care Provider] - Follow up as needed
[2018-10-04 19:14] LABS: ABSOLUTE EOSINOPHILS # (AUTO) 0.1 10^3/uL (0.0-0.6); ABSOLUTE LYMPHOCYTES (AUTO) 2.4 10^3/uL (0.5-4.7); ABSOLUTE MONOCYTES (AUTO) 0.5 10^3/uL (0.1-1.4); ABSOLUTE NEUT (AUTO) 3.8 10^3/uL (1.7-8.2); BASOPHILS % (AUTO) 0.7 % (0-2); EOSINOPHILS % (AUTO) 0.8 % (0-6); HEMATOCRIT 49.3 % (37.9-51.0); LYMPHOCYTES % (AUTO) 35.6 % (13-45); MEAN CORPUSCULAR HEMOGLOBIN 29.3 pg (27.0-33.4); MEAN CORPUSCULAR HGB CONC 34.4 g/dL (32.0-36.0); MEAN CORPUSCULAR VOLUME 85 fl (80-97); MONOCYTES % (AUTO) 6.7 % (3-13); PLATELET COUNT 161 10^3/uL (150-450); RED BLOOD COUNT 5.79 10^6/uL (4.35-5.55); RED CELL DISTRIBUTION WIDTH 12.9 % (11.5-14.0); SEGMENTED NEUTROPHILS % (AUTO) 56.2 % (42-78); TOTAL CELLS COUNTED % (AUTO) 100 %; WHITE BLOOD COUNT 6.8 10^3/uL (4.0-10.5)
--- NOTE | 2018-10-04 19:29 | RADIOLOGY REPORT (SQ) ---
EXAM DESCRIPTION: HAND RIGHT 3 VIEWS COMPLETED DATE/TIME: 10/04/2018 7:05 pm REASON FOR STUDY: Hand injury COMPARISON: None. EXAM PARAMETERS: NUMBER OF VIEWS: Three views. TECHNIQUE: AP, lateral and oblique radiographic images acquired of the right hand. LIMITATIONS: None. FINDINGS: MINERALIZATION: Normal. BONES: No acute fracture or dislocation. No worrisome bone lesions. JOINTS: No effusions. SOFT TISSUES: No soft tissue swelling. No foreign body. OTHER: No other significant finding. IMPRESSION: NEGATIVE STUDY OF THE RIGHT HAND. NO RADIOGRAPHIC EVIDENCE OF ACUTE INJURY. TECHNICAL DOCUMENTATION: JOB ID: [id number] [employer]- All Rights Reserved Reading location - IP/workstation name: [email or web address]
[2018-10-04 19:31] LABS: ALANINE AMINOTRANSFERASE 19 U/L (21-72); ALBUMIN 4.8 g/dL (3.5-5.0); ALKALINE PHOSPHATASE 60 U/L (38-126); ANION GAP 12 (5-19); ASPARTATE AMINO TRANSFERASE 20 U/L (17-59); BILIRUBIN,DIRECT 0.4 mg/dL (0.0-0.4); BILIRUBIN,TOTAL 2.1 mg/dL (0.2-1.3); BLOOD UREA NITROGEN 23 mg/dL (7-20); CALCIUM 9.9 mg/dL (8.4-10.2); CARBON DIOXIDE 27 mmol/L (22-30); CHLORIDE 101 mmol/L (98-107); GLUCOSE 97 mg/dL (75-110); POTASSIUM 4.4 mmol/L (3.6-5.0); TOTAL PROTEIN 7.6 g/dL (6.3-8.2)
--- NOTE | 2018-10-04 20:03 | ER Document Report ---
ED General - General Chief Complaint: Vomiting Stated Complaint: HAND INJURY, VOMITING Time Seen by Provider: 10/04/18 18:22 TRAVEL OUTSIDE OF THE [place] IN LAST 30 DAYS: No - HPI Notes: Patient is a 23-year-old male no significant past medical history who presents to the ED complaining of having nausea and vomiting this morning and feeling fatigued since then. Patient states that he did punch a brick wall 2 days ago and has some hand pain associated. The pain does not radiate. He is otherwise able to eat and drink, but has had decreased p.o. intake today. He is urinating normally and having normal bowel movements. Denies drug allergies. Denies any headache, fever, neck pain, changes in vision/speech/mentation/ hearing, URI, sore throat, chest pain, palpitations, syncope, cough, shortness of breath, wheeze, dyspnea, abdominal pain, diarrhea, urinary retention, dysuria , hematuria, loss of control of bowel or bladder, numbness/tingling, saddle anesthesia, muscle paralysis/weakness, or rash. - Related Data Allergies/Adverse Reactions: No Known Allergies Allergy (Verified 10/04/18 17:50) Past Medical History - Social History Smoking Status: Never Smoker Chew tobacco use (# tins/day): Yes Frequency of alcohol use: None Drug Abuse: None Family History: CAD, COPD, DM, Hyperlipidemia, Hypertension, Malignancy Patient has suicidal ideation: No Patient has homicidal ideation: No Renal/ Medical History: Denies: Hx Peritoneal Dialysis Musculoskeletal Medical History: Reports Hx Musculoskeletal Trauma Past Surgical History: Reports: Hx Orthopedic Surgery - R knee, Other - Cataract removed at age 9 - Immunizations Immunizations up to date: Yes Hx Diphtheria, Pertussis, Tetanus Vaccination: No Review of Systems - Review of Systems -: Yes All other systems reviewed and negative Physical Exam - Vital signs Vitals: Temp Pulse Resp BP Pulse Ox 98.8 F 78 14 122/64 98 10/04/18 17:52 10/04/18 17:52 10/04/18 17:52 10/04/18 17:52 10/04/18 17:52 - Notes Notes: PHYSICAL EXAMINATION: GENERAL: Well-appearing, well-nourished and in no acute distress. A&Ox4. Answers questions appropriately. HEAD: Atraumatic, normocephalic. Non-tender. EYES: Pupils equal round and reactive to light, extraocular movements intact, sclera anicteric, conjunctiva are normal. ENT: Nares patent and without discharge. oropharynx clear without exudates. No tonsilar hypertrophy or erythema. Moist mucous membranes. NECK: Normal range of motion, supple without lymphadenopathy. No rigidity/ meningismus. No midline tenderness. LUNGS: Breath sounds clear to auscultation bilaterally and equal. No wheezes rales or rhonchi. HEART: Regular rate and rhythm without murmurs, rubs, gallops. ABDOMEN: Soft, nontender, nondistended abdomen. No guarding, no rebound. Normal bowel sounds present. No CVA tenderness bilaterally. Musculoskeletal: Rt hand: there is a scab noted over the 4th MCP joint w/o warmth, purulence, or fluctuance. + mild tenderness to the 4th metacarpal w/o ecchymosis or swelling. N/V intact distal. No tenderness to the wrist or scaphoid. Ext's otherwise b/l: FROM to passive/active. Strength 5+/5. No deficits noted. No bony tenderness of extremities. Extremities: No cyanosis, clubbing, or edema b/l. Peripheral pulses 2+. Capillary refill less than 2 seconds. NEUROLOGICAL: Cranial nerves grossly intact. Normal speech, normal gait. Normal sensory, motor exams. PSYCH: Normal mood, normal affect. SKIN: see above. Course - Re-evaluation Re-evalutation: 10/04/18 19:58 Patient states that after receiving nausea medication and fluids that were given by PIT, his symptoms have completely resolved and he is feeling back to normal. Patient is requesting to be discharged. Patient is an afebrile, well-hydrated, 23-year-old male who presents to the ED with a contusion to his right hand status post injury as well as nausea/vomiting , unspecified. Vitals are acceptable without any significant tachycardia, tachypnea, or hypoxia. PE is otherwise unremarkable for any neurovascular compromise, obvious tendon/ligament rupture, obvious fracture/dislocation, septic joint. Patient's abdomen was soft and nontender. He is nontoxic- appearing and is tolerating p.o. without difficulty. CBC and CMP were unremarkable. I did review that his t. bili was mildly elevated and he needs to watch for RUQ pain and get rechecked if need be. No further labs or imaging warranted at this time. Low suspicion/risk for acute appendicitis, bowel obstruction, acute cholecystitis, perforated diverticulitis, incarcerated hernia , pancreatitis, perforated ulcer, peritonitis, sepsis, testicular torsion, or other systemic emergent condition at this time. Patient is aware that his condition can change from initial presentation and he needs to monitor symptoms closely and seek medical attention if any acute changes. I will send her home with a prescription for Zofran. Conservative measures otherwise for symptoms. Recheck with PCM in 3-5 days. Consider consult with a absorption plant operator. Return to the ED with any worsening/concerning symptoms otherwise as reviewed in discharge. Patient is in agreement. - Vital Signs Vital signs: Temp Pulse Resp BP Pulse Ox 98.8 F 78 14 122/64 98 10/04/18 17:52 10/04/18 17:52 10/04/18 17:52 10/04/18 17:52 10/04/18 17:52 - Laboratory Result Diagrams: 10/04/18 19:00 10/04/18 19:00 Laboratory results interpreted by me: 10/04/18 19:00 RBC 5.79 H Discharge - Discharge Clinical Impression: Right hand pain Nausea and vomiting Qualifiers: Vomiting type: unspecified Vomiting Intractability: non-intractable Qualified Code(s): R11.2 - Nausea with vomiting, unspecified Condition: Stable Disposition: HOME, SELF-CARE Instructions: Antinausea Medication ([facility]), Vomiting ([facility]) Additional Instructions: Rest, ice, compression, elevation, triple antibiotic ointment Maintain adequate fluid and food intake [place] diet ([employer] Bananas, rice, apples, toast, etc Zofran as needed tylenol if needed Monitor for any worsening symptoms Make sure you are staying hydrated enough to urinate and have normal BM's Recheck with your PCM in 3-5 days Consider consult with Gastroenterology for ongoing/worsening symptoms Return to the ED with any worsening symptoms and/or development of fever, headache, chest pain, palpitations, syncope, shortness of breath, trouble breathing, abdominal pain, n/v/d, blood in stool/urine, weakness, or other worsening symptoms that are concerning to you. Prescriptions: Ondansetron [Zofran Odt 4 mg Tablet] 1 - 2 tab PO Q4H PRN #15 tab.rapdis PRN Reason: For Nausea/Vomiting Referrals: MARS WEAVER MD [Primary Care Provider] - Follow up as needed RAQUEL WRIGHT MD [ACTIVE STAFF] - Follow up as needed [facility] [Provider Group] - Follow up as needed
[2018-10-04 20:16] VITALS: BP 118/63
== END 2018-10-04 20:17 | disposition home or self-care (01) ==
LOC: ER 17:47
DX: R11.2 Nausea with vomiting, unspecified (principal); S60.221A Contusion of right hand, initial encounter; M79.641 Pain in right hand; W22.01XA Walked into wall, initial encounter; R53.83 Other fatigue; Z72.0 Tobacco use
CPT/HCPCS: 99284; 96360; 36415; 85025; 80053; 73130; J7030

== ENCOUNTER 2019-10-05 03:25 | Emergency (ER) | payer SELFPAY ==
--- NOTE | 2019-10-05 06:19 | RADIOLOGY REPORT (SQ) ---
EXAM: X-ray hand 1-2 views CLINICAL DATA: 24-year-old male with bone pain TECHNICAL DATA: Two x-ray views of the right hand were performed on 10/05/2019 at 5:59 AM. COMPARISONS: 04/19/2017 FINDINGS: There is no evidence of fracture or dislocation. There is no significant arthritis or degenerative change. No focal lytic or sclerotic bone lesions are seen. Bone mineralization is normal. No focal soft tissue abnormalities are identified. IMPRESSION: No evidence of acute osseous injury involving the right hand.
[2019-10-05] MEDS ORDERED: IBUPROFEN 800 MG TABLET PO ONE (07:36)
--- NOTE | 2019-10-05 07:36 | ER Document Report ---
HPI - HPI Patient complains to provider of: right hand injury Time Seen by Provider: 10/05/19 07:32 Pain Level: 1 Context: Patient is a 24-year-old male currently up-to-date on immunizations presents to the emergency department with an injury to his right hand. States that approximately 1:00 in the morning he was angry. States he punched a ceramic plate. States the plate then broke. Patient states he has pain in his MCP joint of his right pinky and ring finger. Patient's denying any other injuries. He is denying any suicidal or homicidal ideations. Patient's denying any snuffbox tenderness. States his last tetanus immunization was within the last year. Past Medical History - General Information source: Patient - Social History Smoking Status: Never Smoker Family History: CAD, COPD, DM, Hyperlipidemia, Hypertension, Malignancy Patient has suicidal ideation: No Patient has homicidal ideation: No Renal/ Medical History: Denies: Hx Peritoneal Dialysis Musculoskeletal Medical History: Reports Hx Musculoskeletal Trauma Past Surgical History: Reports: Hx Orthopedic Surgery - R knee, Other - Cataract removed at age 9 - Immunizations Immunizations up to date: Yes Hx Diphtheria, Pertussis, Tetanus Vaccination: No Vertical Provider Document - CONSTITUTIONAL Agree With Documented VS: Yes Notes: GENERAL: Alert, interacts well. No acute distress. HEAD: Normocephalic, atraumatic. EYES: Pupils equal, round, and reactive to light. Extraocular movements intact. ENT: Oral mucosa moist, tongue midline. NECK: Full range of motion. Supple. Trachea midline. LUNGS: Clear to auscultation bilaterally, no wheezes, rales, or rhonchi. No respiratory distress. HEART: Regular rate and rhythm. No murmur ABDOMEN: Soft, non-tender. Non-distended. Bowel sounds present in all 4 quadrants. EXTREMITIES: Moves all 4 extremities spontaneously. normal radial and dorsalis pedis pulses bilaterally. No cyanosis. Abrasions noted MCP joint of right pinky finger, ring finger, middle finger, index finger. Patient can flex and extend all 5 fingers on the right hand. He can also abduct and adduct all 5 fingers in the right hand against resistance. No snuffbox tenderness noted. BACK: no cervical, thoracic, lumbar midline tenderness. No saddle anesthesia, normal distal neurovascular exam. NEUROLOGICAL: Alert and oriented x3. Normal speech. cranial nerves II through XII grossly intact PSYCH: Normal affect, normal mood. SKIN: Warm, dry, normal turgor. - INFECTION CONTROL TRAVEL OUTSIDE OF THE [place] IN LAST 30 DAYS: No Course - Re-evaluation Re-evalutation: 10/05/19 07:34 Hand X-Ray 10/05/19 00:00 IMPRESSION: No evidence of acute osseous injury involving the right hand. Abrasions were cleaned in the emergency department, dressed by nursing staff. Discussed negative x-rays at bedside. Discussed close follow-up with primary care provider and orthopedics as needed. Patient stable for discharge. - Vital Signs Vital signs: Temp Pulse Resp BP Pulse Ox 97.9 F 113 H 20 113/68 95 10/05/19 04:00 10/05/19 04:00 10/05/19 04:00 10/05/19 04:00 10/05/19 04:00 Discharge - Discharge Clinical Impression: Abrasion Injury of right hand Qualifiers: Encounter type: initial encounter Qualified Code(s): S69.91XA - Unspecified injury of right wrist, hand and finger(s), initial encounter Condition: Stable Disposition: HOME, SELF-CARE Instructions: Abrasions ([facility]) Additional Instructions: As we discussed you have been seen and treated in the emergency department for an injury to your right hand. Your initial x-rays are negative for fracture. Please follow-up with your primary care provider or orthopedics in the next 12 to 24 hours. Please return to the emergency department for any concerns. Forms: Return to Work Referrals: MARS WEAVER MD [Primary Care Provider] - Follow up as needed TIFFANIE DANIELLE DO [ACTIVE STAFF] - Follow up as needed
[2019-10-05 07:59] VITALS: BP 127/78
== END 2019-10-05 07:59 | disposition home or self-care (01) ==
LOC: ER 03:25
DX: S60.511A Abrasion of right hand, initial encounter (principal); S60.414A Abrasion of right ring finger, initial encounter; S60.412A Abrasion of right middle finger, initial encounter; S60.410A Abrasion of right index finger, initial encounter; M25.541 Pain in joints of right hand; W22.8XXA Striking against or struck by other objects, initial encounter
CPT/HCPCS: 99283

== ENCOUNTER 2020-10-20 17:02 | Emergency (ER) | payer SELFPAY ==
[2020-10-20 17:08] VITALS: BP 124/70
[2020-10-20] MEDS ORDERED: ONDANSETRON 4 MG TAB.RAPDIS PO ONE (17:26)
--- NOTE | 2020-10-20 17:27 | ER Document Report ---
ED Medical Screen (RME) - General Chief Complaint: Chest Pain Stated Complaint: CHEST PAIN Time Seen by Provider: 10/20/20 17:25 Primary Care Provider: MARS WEAVER MD [Primary Care Provider] - Follow up as needed Mode of Arrival: Ambulatory Notes: Patient presents complaining of dizziness with left-sided chest pain since noon. Patient states pain radiates through to his back. Patient states that he has had nausea without any vomiting. Patient reports cough for the past 2 weeks. Patient states that he has felt as though he is going to pass out earlier today. Patient denies any fever. Patient denies any chronic medical problems. I have greeted and performed a rapid initial assessment of this patient. A comprehensive ED assessment and evaluation of the patient, analysis of test results and completion of the medical decision making process will be conducted by additional ED providers. TRAVEL OUTSIDE OF THE [place] IN LAST 30 DAYS: No - Related Data Allergies/Adverse Reactions: No Known Allergies Allergy (Verified 10/04/18 17:50) Past Medical History - Social History Chew tobacco use (# tins/day): Yes Frequency of alcohol use: Social Drug Abuse: None Renal/ Medical History: Denies: Hx Peritoneal Dialysis Musculoskeltal Medical History: Reports Hx Musculoskeletal Trauma Past Surgical History: Reports: Hx Orthopedic Surgery - R knee, Other - Cataract removed at age 9 - Immunizations Immunizations up to date: Yes Hx Diphtheria, Pertussis, Tetanus Vaccination: No Physical Exam - Vital signs Vitals: Temp Pulse Resp BP Pulse Ox 98.8 F 88 16 124/70 100 10/20/20 17:07 10/20/20 17:07 10/20/20 17:07 10/20/20 17:07 10/20/20 17:07 - Respiratory Respiratory status: No respiratory distress Breath sounds: Normal - Cardiovascular Rhythm: Regular Heart sounds: S1 appreciated, S2 appreciated Course - Vital Signs Vital signs: Temp Pulse Resp BP Pulse Ox 98.8 F 88 16 124/70 100 10/20/20 17:07 10/20/20 17:07 10/20/20 17:07 10/20/20 17:07 10/20/20 17:07 Doctor's Discharge - Discharge Referrals: MARS WEAVER MD [Primary Care Provider] - Follow up as needed
--- NOTE | 2020-10-20 17:53 | RADIOLOGY REPORT (SQ) ---
EXAM DESCRIPTION: CHEST SINGLE VIEW IMAGES COMPLETED DATE/TIME: 10/20/2020 5:44 pm REASON FOR STUDY: cp, cough COMPARISON: 12/07/2016 EXAM PARAMETERS: NUMBER OF VIEWS: One view. TECHNIQUE: Single frontal radiographic view of the chest acquired. RADIATION DOSE: NA LIMITATIONS: None. FINDINGS: LUNGS AND PLEURA: No opacities, masses or pneumothorax. No pleural effusion. MEDIASTINUM AND HILAR STRUCTURES: No masses. Contour normal. HEART AND VASCULAR STRUCTURES: Heart normal in size. Normal vasculature. BONES: No acute findings. HARDWARE: None in the chest. OTHER: No other significant finding. IMPRESSION: NO ACUTE RADIOGRAPHIC FINDING IN THE CHEST. TECHNICAL DOCUMENTATION: JOB ID: [id number] 2010 [employer]- All Rights Reserved Reading location - IP/workstation name: [email or web address]
[2020-10-20 18:23] LABS: ABSOLUTE EOSINOPHILS # (AUTO) 0.1 10^3/uL (0.0-0.6); ABSOLUTE LYMPHOCYTES (AUTO) 1.9 10^3/uL (0.5-4.7); ABSOLUTE MONOCYTES (AUTO) 0.4 10^3/uL (0.1-1.4); ABSOLUTE NEUT (AUTO) 3.3 10^3/uL (1.7-8.2); BASOPHILS % (AUTO) 0.6 % (0-2); EOSINOPHILS % (AUTO) 1.3 % (0-6); HEMATOCRIT 44.3 % (37.9-51.0); HEMOGLOBIN 15.2 g/dL (13.5-17.0); LYMPHOCYTES % (AUTO) 33.8 % (13-45); MEAN CORPUSCULAR HEMOGLOBIN 29.1 pg (27.0-33.4); MEAN CORPUSCULAR HGB CONC 34.4 g/dL (32.0-36.0); MEAN CORPUSCULAR VOLUME 85 fl (80-97); MONOCYTES % (AUTO) 7.2 % (3-13); PLATELET COUNT 157 10^3/uL (150-450); RED BLOOD COUNT 5.22 10^6/uL (4.35-5.55); RED CELL DISTRIBUTION WIDTH 12.7 % (11.5-14.0); SEGMENTED NEUTROPHILS % (AUTO) 57.1 % (42-78); TOTAL CELLS COUNTED % (AUTO) 100 %; WHITE BLOOD COUNT 5.7 10^3/uL (4.0-10.5)
[2020-10-20 18:45] LABS: ALBUMIN 4.7 g/dL (3.5-5.0); ALKALINE PHOSPHATASE 63 U/L (38-126); ANION GAP 7 (5-19); ASPARTATE AMINO TRANSFERASE 25 U/L (17-59); BILIRUBIN,TOTAL 2.1 mg/dL (0.2-1.3); BLOOD UREA NITROGEN 18 mg/dL (7-20); CALCIUM 9.7 mg/dL (8.4-10.2); CARBON DIOXIDE 29 mmol/L (22-30); CHLORIDE 99 mmol/L (98-107); GLUCOSE 88 mg/dL (75-110); TOTAL PROTEIN 7.7 g/dL (6.3-8.2)
--- NOTE | 2020-10-20 19:46 | EKG REPORT ---
SEVERITY:- ABNORMAL ECG - SINUS RHYTHM ST ELEVATION SUGGESTS PERICARDITIS : Confirmed by: Travon Arce MD 20-Oct-2020 19:45:20
== END 2020-10-20 20:27 | disposition left against medical advice (07) ==
LOC: ER 17:02
DX: R07.9 Chest pain, unspecified (principal); R42 Dizziness and giddiness; R11.0 Nausea; Z72.0 Tobacco use; Z53.20 Procedure and treatment not carried out because of patient's decision for unspecified reasons
CPT/HCPCS: 36415; 71045; 80053; 83735; 84484; 85025; 93005; 93010; 99281